=== PATIENT | male | born 1990 | race Caucasian/White ===

== ENCOUNTER 2016-07-30 16:04 | Emergency (ER) | payer BC, OTHER ==
[2016-07-30 16:37] VITALS: RESP 18; TEMP 97.7
[2016-07-30] MEDS ORDERED: chlordiazePOXIDE 25 MG CAP PO STA (17:13)
--- NOTE | 2016-07-30 17:26 | ED ---
Recheck HPI - General Chief Complaint: Recheck/Abnormal Lab/Rx Stated Complaint: Chills/Body Aches Time Seen by Provider: 07/30/16 16:53 Source: patient, RN notes reviewed, old records reviewed Mode of arrival: ambulatory Limitations: no limitations - History of Present Illness Initial Comments: Physical 25-year-old male presents emergency Department with chief complaint of going through alcohol withdrawals. Patient reports that his last drink was 2 days ago. Patient states that he normally drinks about a fifth to 20 beers a day. He reports that he's been a heavy drinker for the past 8 years. Patient reports that he has no plans to follow-up with [facility] or [facility] 8 this time. He reports that for the past few days he has been staying in bed. Patient denies any vomiting but feels nauseated. He denies any fever or chills or any other associated symptoms. Patient states that he is looking for help for detox. He reports he's had no drinks in the past 3 days. Patient reports this may first time of trying to attempt to become sober. Patient denies any recent chills, shortness of breath, chest pain, back pain, abdominal pain, nausea vomiting, dysuria or hematuria, constipation or diarrhea, headaches or visual changes, or any other current symptoms - Related Data Previous Rx's Medication Instructions Recorded Ondansetron [Zofran ODT] 4 mg PO Q8HR #12 tab 07/30/16 chlordiazePOXIDE HCl [Librium] 20 mg PO TID #20 capsule 07/30/16 Allergies Allergy/AdvReac Type Severity Reaction Status Date / Time No Known Allergies Allergy Verified 07/30/16 17:11 Review of Systems ROS Statement: Those systems with pertinent positive or pertinent negative responses have been documented in the HPI. ROS Other: All systems not noted in ROS Statement are negative. Past Medical History Additional Past Medical History / Comment(s): hyperkalemia History of Any Multi-Drug Resistant Organisms: None Reported Past Surgical History: No Surgical Hx Reported Past Psychological History: No Psychological Hx Reported Smoking Status: Current every day smoker Past Alcohol Use History: Daily Past Drug Use History: Marijuana General Exam - General Exam Comments Initial Comments: 25-year-old male. Patient is on appear to be in any acute distress. Patient has no active signs of withdrawal. No tremors. Limitations: no limitations General appearance: alert, in no apparent distress Head exam: Present: atraumatic, normocephalic, normal inspection Eye exam: Present: normal appearance, PERRL, EOMI. Absent: scleral icterus, conjunctival injection, periorbital swelling ENT exam: Present: normal exam, mucous membranes moist Neck exam: Present: normal inspection. Absent: tenderness, meningismus, lymphadenopathy Respiratory exam: Present: normal lung sounds bilaterally. Absent: respiratory distress, wheezes, rales, rhonchi, stridor Cardiovascular Exam: Present: regular rate, normal rhythm, normal heart sounds. Absent: systolic murmur, diastolic murmur, rubs, gallop, clicks GI/Abdominal exam: Present: soft, normal bowel sounds. Absent: distended, tenderness, guarding, rebound, rigid Extremities exam: Present: normal inspection, full ROM, normal capillary refill. Absent: tenderness, pedal edema, joint swelling, calf tenderness Back exam: Present: normal inspection Neurological exam: Present: alert, oriented X3, CN II-XII intact Psychiatric exam: Present: normal affect, normal mood Skin exam: Present: warm, dry, intact, normal color. Absent: rash Course Vital Signs 07/30/16 16:34 Temperature 97.7 F Pulse Rate 63 Respiratory 18 Rate Blood Pressure 128/81 O2 Sat by Pulse 99 Oximetry Medical Decision Making - Medical Decision Making This is a 25-year-old male presents emergency Department with chief complaint of the health alcohol detox. He reports last dose 3 days ago. He states that he normally drinks approximately a fifth or 20 beers a day. He states that his first MTP is try to have to become sober. He states that he has no significant plans follow-up with [facility] this time. I did encourage him that he needs to have support systems when going through a difficult time like this. Patient will be given Librium on the emergency department. Patient also be discharged with a Librium taper. Discuss close follow-up with her primary care provider as well as the out patient services. Patient agrees to this. I advised to return to emergency department if any alarming signs or symptoms occur. Patient understands treatment plan will comply. Disposition Clinical Impression: History of alcohol dependence Disposition: HOME SELF-CARE Condition: Good Instructions: Alcohol Dependence (ED), Alcohol Use Disorder (ED) Additional Instructions: Patient advised to follow-up with outpatient treatment plans. Patient should take the medication as prescribed. Return to the emergency department if any alarming signs or symptoms occur. Prescriptions: chlordiazePOXIDE HCl [Librium] 20 mg PO TID #20 capsule Ondansetron [Zofran ODT] 4 mg PO Q8HR #12 tab Referrals: Terra Robles MD [STAFF PHYSICIAN] - 1-2 days Time of Disposition: 17:21
[2016-07-30 17:52] VITALS: BP 123/70; PULSE 69
== END 2016-07-30 17:52 | disposition home or self-care (01) ==
LOC: EC 16:04
DX: F10.20 Alcohol dependence, uncomplicated (principal); F17.200 Nicotine dependence, unspecified, uncomplicated
CPT/HCPCS: 99285

== ENCOUNTER 2019-12-19 17:07 | Emergency (ER) | payer OTHER ==
[2019-12-19 17:22] VITALS: BP 131/86; RESP 18; TEMP 99.1
[2019-12-19] MEDS ORDERED: KETOROLAC 15 MG/ML 1 ML VIAL IM STA (18:00)
--- NOTE | 2019-12-19 18:32 | ED ---
General Adult HPI - General Chief complaint: Eye Problems Stated complaint: dental pain, facial swelling Time Seen by Provider: 12/19/19 17:33 Source: patient Mode of arrival: ambulatory - History of Present Illness Initial comments: Patient is a 28-year-old male presenting to the emergency Department with complaints of pain and swelling on the right side of his face that started yesterday. Patient denies any injuries or trauma. 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 Patient states yesterday he noticed pain in the right side of his face and then noticed the swelling on the right side of his nose extending into the right cheek. Patient states it is painful to the touch. He denies any dental pain or pain with chewing. He state s he does have a bad tooth in the right upper side but states it does not hurt has been away for years. He denies any fevers but does admit to some mild nausea. He did not take anything for his pain. Patient states a week ago he was feeling a little bit congested but that had cleared up. He denies any other complaints at this time. Upon arrival to the ER, patient was tachycardia, otherwise vitals are normal. - Related Data Previous Rx's Medication Instructions Recorded Ondansetron [Zofran ODT] 4 mg PO Q8HR #12 tab 07/30/16 chlordiazePOXIDE HCl [Librium] 20 mg PO TID #20 capsule 07/30/16 Amoxicillin/Potassium Clav 1 tab PO BID 7 Days #14 tab 12/19/19 [Augmentin 875-125 Tablet] Allergies Allergy/AdvReac Type Severity Reaction Status Date / Time No Known Allergies Allergy Verified 12/19/19 17:22 Review of Systems ROS Statement: Those systems with pertinent positive or pertinent negative responses have been documented in the HPI. ROS Other: All systems not noted in ROS Statement are negative. Past Medical History Additional Past Medical History / Comment(s): hyperkalemia History of Any Multi-Drug Resistant Organisms: None Reported Past Surgical History: No Surgical Hx Reported Past Psychological History: No Psychological Hx Reported Smoking Status: Current every day smoker Past Alcohol Use History: Occasional Past Drug Use History: Marijuana General Exam - General Exam Comments Initial Comments: GENERAL: Patient is well-developed and well-nourished. Patient is nontoxic and in no acute distress. HEAD: Atraumatic, normocephalic. EYES: Pupils equal round and reactive to light, extraocular movements intact, sclera anicteric, conjunctiva are normal. Eyelids were unremarkable. ENT: TMs normal, nares patent, oropharynx clear without exudates. Moist mucous membranes. Patient has some mild to moderate swelling of the right side of the cheek over the maxillary sinuses that is tender to the touch, there is some mild erythema as well. Patient does have a decayed tooth in the right upper side but is not painful to the touch, there is no dental abscess present. NECK: Normal range of motion, supple without lymphadenopathy or JVD. LUNGS: Unlabored respirations. Breath sounds clear to auscultation bilaterally and equal. No wheezes rales or rhonchi. HEART: Regular rate and rhythm without murmurs, rubs or gallops. ABDOMEN: Soft, nontender, normoactive bowel sounds. No guarding, no rebound. No masses appreciated. : Deferred MUSCULOSKELETAL: Normal extremities with adequate strength and normal range of motion, no pitting or edema. No clubbing or cyanosis. NEUROLOGICAL: Patient is alert and oriented x 3. Symmetrical smile. Normal speech, normal gait. PSYCH: Normal mood, normal affect. SKIN: Warm, Dry, normal turgor, no rashes or lesions noted. Course Vital Signs 12/19/19 12/19/19 12/19/19 17:19 18:29 19:37 Temperature 99.1 F Pulse Rate 141 H 113 H 105 H Respiratory 18 Rate Blood Pressure 131/86 O2 Sat by Pulse 100 98 100 Oximetry Medical Decision Making - Medical Decision Making Patient is a 28-year-old male here for right-sided facial pain and swelling started yesterday. He denies any dental pain or trouble breathing. Does admit to some sinus congestion. I did do a CT of his sinuses and reveals evidence for mild frontal ethmoid and right maxillary sinusitis, right-sided maxillary soft tissue swelling. She was given Toradol for pain relief. Upon reexamination, patient is sleeping in exam room. I discussed these findings with the patient. I will start patient on Augmentin for sinusitis, possible cellulitis. First dose given in the ER. Patient is agreement with this plan of care and he is stable for discharge. Return parameters were discussed with the patient he verbalizes understanding. Case discussed with Dr. Pérez. Disposition Clinical Impression: Sinusitis, acute frontal, Facial cellulitis Disposition: HOME SELF-CARE Condition: Stable Instructions (If sedation given, give patient instructions): Sinusitis (ED) Additional Instructions: Please return to the Emergency Department if symptoms worsen or any other concerns. CT scan revealed evidence of inflammation in your sinuses, possible cellulitis. Take antibiotic as directed. Follow-up with PCP. Prescriptions: Amoxicillin/Potassium Clav [Augmentin 875-125 Tablet] 1 tab PO BID 7 Days #14 tab Is patient prescribed a controlled substance at d/c from ED?: No Referrals: None,Stated [Primary Care Provider] - 1-2 days Naun Sorto MD [REFERRING] - 1-2 days
--- NOTE | 2019-12-19 18:54 | CT ---
EXAMINATION TYPE: CT sinus wo con DATE OF EXAM: 12/19/2019 COMPARISON: None HISTORY: Right sided facial swelling with pain. CT DLP: 374.1 mGycm Automated exposure control for dose reduction was used. Images were obtained from the bottom of the maxilla to the top of the frontal sinuses without contras t. There is soft tissue swelling anterior to the right side of the maxilla. There is mild mucosal thicke john in the right side maxillary sinus. There is no evidence of a blowout fracture. There is bilatera l patency of the ostiomeatal complex. There is mild mucosal thickening in the frontal and ethmoid sin uses. Sphenoid sinus appears fairly normal. There is no evidence of retro-orbital mass. The globes ar e symmetric. Nasal bone is intact. Maxilla is intact. Zygomatic arches appear normal. I see no bony d estructive process. IMPRESSION: There is evidence of some mild frontal ethmoid and right maxillary sinusitis. Right side maxillary so ft tissue swelling.
[2019-12-19] MEDS ORDERED: AMOXIC-POT CLAV 875-125MG 1 EACH TAB PO STA (19:10)
[2019-12-19 19:38] VITALS: PULSE 105
== END 2019-12-19 19:38 | disposition home or self-care (01) ==
LOC: EC 17:07
DX: L03.211 Cellulitis of face (principal); J32.4 Chronic pansinusitis; F17.200 Nicotine dependence, unspecified, uncomplicated
CPT/HCPCS: 70486; 99283; 96372; J1885